=== PATIENT | female | born 1975 | race Caucasian/White ===

== ENCOUNTER → 2016-10-02 | Outpatient (CLI) | payer BC ==
--- NOTE | ~2016-10-02 | PUL ---
PATIENT'S NAME: PAVEL STRANGE [facility] AGE: 41 Y [address] ROOM: [place] [id number] LOCATION: [facility] ADMIT DATE: 10/02/2016 Pulmonary DISCHARGE DATE: FAMILY PHYSICIAN: PHYSICIAN, NO ATTENDING PHYSICIAN: ELIGIO VALDEZ NAME OF PROCEDURE: Home sleep test DATE OF PROCEDURE: 10/02/16 TECH: NESTOR Gutierrez SUMMARY: Patient underwent home sleep testing using a type III device and was studied for 8 hours 27 minutes. In that time there were no apneas and 7 hypopneas for an apnea/hypopnea index normal at less than 1 event per hour. Oxygen saturations ranged from 84-93% and were below 88% for fewer than 5 minutes. Heart rate ranged from 43-82 beats per minute. IMPRESSION: Normal home sleep test. PLAN: Patient will receive results from the ordering provider. MD NATE ANDINO/ /[id number] dtt: 10/07/16 1455 , Jimbo Mark dtd: 10/06/16 1642
== END | disposition disaster alternative care site (69) ==
LOC: GSLP 11:00
DX: E06.3 Autoimmune thyroiditis (principal); R41.840 Attention and concentration deficit; R63.5 Abnormal weight gain; R40.0 Somnolence; R53.83 Other fatigue
CPT/HCPCS: G0399